=== PATIENT | male | born 1955 | race Caucasian/White ===

== ENCOUNTER 2018-10-22 11:21 | Emergency (ER) | payer BC ==
[2018-10-22 13:19] VITALS: BP 117/63
--- NOTE | 2018-10-22 13:27 | UC ---
UC General HPI - HPI Summary HPI Summary: PT NOTED A FB SENSATION IN R EYE YESTERDAY. FELT IT WAS AN EYE LASH BUT FOUND NOTHING. TODAY, AWOKE WITH R EYE REDNESS, ONGOING IRRITATION AND CRUSTING. ALSO MILD SWELLING AROUND THE EYE. DENIES JOHNS, URI, CONTACT LENSE USE AND VISUAL LOSS. - History of Current Complaint Chief Complaint: UCEye Stated Complaint: RT EYE COMPLAINT Time Seen by Provider: 10/22/18 13:14 Hx Obtained From: Patient Onset/Duration: Gradual Onset Timing: Constant Pain Intensity: 0 Associated Signs & Symptoms: Negative: Fever, Headache - Allergy/Home Medications Allergies/Adverse Reactions: Allergies Allergy/AdvReac Type Severity Reaction Status Date / Time No Known Allergies Allergy Verified 10/02/12 20:32 Home Medications: Home Medications Metformin HCl 500 mg PO DAILY 10/22/18 [History Confirmed 10/22/18] PMH/Surg Hx/FS Hx/Imm Hx Endocrine History: Diabetes - Surgical History Surgical History: Yes Surgery Procedure, Year, and Place: hernia repair 2002. varcose vein removal 2009 - Social History Occupation: Employed Full-time Alcohol Use: Weekly Substance Use Type: None Smoking Status (MU): Never Smoked Tobacco Review of Systems All Other Systems Reviewed And Are Negative: Yes Constitutional: Positive: Negative Skin: Positive: Negative Eyes: Positive: Drainage, Eye Redness. Negative: Blurred Vision, Diplopia, Photophobia ENT: Positive: Negative Respiratory: Positive: Negative Cardiovascular: Positive: Negative Gastrointestinal: Positive: Negative Genitourinary: Positive: Negative Motor: Positive: Negative Neurovascular: Positive: Negative Musculoskeletal: Positive: Negative Neurological: Positive: Negative Psychological: Positive: Negative Physical Exam Triage Information Reviewed: Yes Appearance: Well-Appearing Vital Signs: Initial Vital Signs Temp 97.9 F 10/22/18 13:15 Pulse 57 10/22/18 13:15 Resp 14 10/22/18 13:15 BP 117/63 10/22/18 13:15 Pulse Ox 100 10/22/18 13:15 Vital Signs Reviewed: Yes Eyes: Positive: Other: - Mild R inferior orbit edema. No auricular adenoapthy. Conjunctiva OD is deeply injected(almost hemorrhagic) and swollen, OS is clear. AC's clear. Corneas clear. PERRL, EOMI. Lids everted and No FB's. ENT: Positive: Pharynx normal, TMs normal. Negative: Nasal congestion, Nasal drainage Neck: Positive: Supple, Nontender, No Lymphadenopathy Respiratory: Positive: Lungs clear, Normal breath sounds Cardiovascular: Positive: RRR, No Murmur Abdomen Description: Positive: Nontender, No Organomegaly, Soft Bowel Sounds: Positive: Present Musculoskeletal: Positive: ROM Intact Neurological: Positive: Alert Psychological: Positive: Age Appropriate Behavior Skin Exam: Normal Course/Dx - Course Course Of Treatment: office of Dr Delatorre called and they can see pt today at #:30pm. pt agrees to f/u time. tx def to opthamology. - Differential Dx - Multi-Symptom Differential Diagnoses: Other - no concern for glaucoma or corneal ulcer/ abrasion/dendrites. likely severe viral infection. will refer to opthamology for additional evaluation. - Diagnoses Provider Diagnosis: Chemosis of right conjunctiva, Conjunctivitis Discharge - Sign-Out/Discharge Documenting (check all that apply): Patient Departure All imaging exams completed and their final reports reviewed: No Studies - Discharge Plan Condition: Stable Disposition: HOME Patient Education Materials: Conjunctivitis (ED) Forms: *Work Release Referrals: Jayda Delatorre MD [Medical Doctor] - Additional Instructions: FOLLOW UP DR DELATORRE TODAY AT 3:30PM SCHEDULED BY THIS FACILITY. - Billing Disposition and Condition Condition: STABLE Disposition: Home
== END 2018-10-22 13:43 | disposition home or self-care (01) ==
LOC: UCCORT 11:21
DX: H11.421 Conjunctival edema, right eye (principal); H10.9 Unspecified conjunctivitis; Z11.9 Encounter for screening for infectious and parasitic diseases, unspecified; Z79.84 Long term (current) use of oral hypoglycemic drugs
CPT/HCPCS: 99201; G0463